=== PATIENT | male | born 1990 | race Two or more races ===

== ENCOUNTER 2020-09-12 16:16 | Outpatient (CLI) | payer OTHER ==
--- NOTE | 2020-09-12 16:48 | XRAY Report ---
PROCEDURE: Cervical Spine 2 View INDICATIONS: STRAIN OF MUSCLE, FACIA, AND TENDON OF NECK TECHNIQUE: 3 view(s) of the cervical spine were acquired. COMPARISON: None. FINDINGS: Bones: No fractures or dislocations to the C7-T1 level. The lateral masses of C1 appear intact on t he odontoid view. No suspicious bony lesions. Soft tissues: No prevertebral soft tissue swelling. IMPRESSION: No visualized acute fracture or dislocation. However, occult injury cannot be excluded. Recommend short interval imaging follow-up in 7-10 days as clinically indicated for additional evalua tion. Reviewed by: Geraldine Aden MD on 09/12/2020 3:46 PM [place] Approved by: Geraldine Aden MD on 09/12/2020 3:46 PM [facility] Station ID: [id number]
--- NOTE | 2020-09-12 19:04 | XRAY Report ---
PROCEDURE: Thoracic Spine 2 View INDICATIONS: STRAIN OF MUSCLE, FACIA, AND TENDON OF NECK TECHNIQUE: 2 views of the thoracic spine were acquired. COMPARISON: None. FINDINGS: Bones: No fractures or dislocations. No suspicious bony lesions. 12 pairs of ribs are noted, and a ppear intact where visualized. Soft tissues: No paravertebral stripe thickening. IMPRESSION: No visualized acute fracture or dislocation. However, occult injury cannot be excluded. Recommend dennise rt interval imaging follow-up in 7-10 days as clinically indicated for additional evaluation. Reviewed by: Geraldine Aden MD on 09/12/2020 6:03 PM [facility] Approved by: Geraldine Aden MD on 09/12/2020 6:03 PM [facility] Station ID: [id number]
== END 2020-09-12 23:59 | disposition home or self-care (01) ==
LOC: DI.N 16:16
PROVIDERS: ATTEND Physician Assistant Medical
DX: S16.1XXA Strain of muscle, fascia and tendon at neck level, initial encounter (principal)

== ENCOUNTER 2020-09-12 18:17 | Emergency (ER) | payer OTHER ==
[2020-09-12] MEDS ORDERED: HYDROmorphone 1 MG/ML CARPUJECT IVP STA (18:58)
--- NOTE | 2020-09-12 19:13 | ED Physician Documentation ---
History of Present Illness - Stated complaint Stated Complaint: NECK INJ - Chief complaint Chief Complaint: General - Additonal information Additional information: 30-year-old male referred to the emergency department for evaluation of the neck trauma. Yesterday afternoon he was working on [employer] when he was attempting to move a chain link fencing. He was in a harness on the outside of the bridge. As he was bending down while standing on a steel cable he cut a clip to the fencing and the cable he was standing on snapped he fell off of it striking his chin and right neck on the cable below it. He subsequently was shields spended upside down in his harness before being retrieved back to the bridge. He does have a large contusion on the right side of his neck and under his jaw. He presented to walk-in clinic today for evaluation of the neck trauma and was found to be generally quite tender in all areas in the neck as well as midline lower cervical. He reportedly had cervical neck and throacic x-rays completed Which did not show any apparent injury but given the mechanism and the significant tenderness in the right anterior and lateral neck he was referred to the ER for further evaluation. This is a work related injury. Seen by a walk-in provider and the initial L&I reports was started. An APF was also started preventing pt from returning to work until f/u 09/16/20 with provider. This is a follow-[id number] Review of Systems Constitutional: reports: Reviewed and negative Eyes: reports: Reviewed and negative Ears: reports: Reviewed and negative Nose: reports: Reviewed and negative Throat: reports: Reviewed and negative Cardiac: reports: Reviewed and negative Respiratory: reports: Reviewed and negative GI: reports: Reviewed and negative Skin: reports: Abrasion (s) Musculoskeletal: reports: Neck pain Neurologic: reports: Reviewed and negative Psychiatric: reports: Reviewed and negative PD PAST MEDICAL HISTORY - Past Medical History Past Medical History: No - Past Surgical History Past Surgical History: No - Allergies Allergies/Adverse Reactions: Allergies Allergy/AdvReac Type Severity Reaction Status Date / Time No Known Drug Allergies Allergy Verified 09/12/20 18:35 - Social History Does the pt smoke?: No Does the pt drink ETOH?: No Does the pt have substance abuse?: No - Immunizations Immunizations are current?: No - POLST Patient has POLST: No PD ED PE EXPANDED - General General: Alert, No acute distress - Neck Neck: Other (Large contusion right side of neck that extends to just under the jaw. 2+ carotid pulse bilaterally without bruit or thrill. Generalized tenderness of the paraspinous and anterior neck muscles. Limited range of motion secondary to pain. Normal phonation. No trismus.) - Cardiac Cardiac: Regular Rate, Regular Rhythm, Radial strong equal, Pedal strong equal, Cap refill < 2 sec - Respiratory Respiratory: Clear to ausultation juan carlos. No: Distress, Labored - Abdomen Abdomen: Normal Bowel sounds. No: Tender to palpation - Derm Derm: Abrasion (s) (3 x 4 cm abrasion right lateral neck that extends to just under the angle of the jaw and mandible.) - Extremities Extremities: Normal, Other (Motor strength 5 of 5 bilateral upper extremities.). No: Deformity, Tenderness - Neuro Neuro: Alert and Oriented X 3, CNII-XII intact, Cerebellar nl, Normal gait, Normal finger nose, Normal speech. No: Nystagmus - GCS Eye Opening: Spontaneous Motor: Obeys Commands Verbal: Oriented Total: 15 Results - Vitals Vitals: Vital Signs - 24 hr 09/12/20 09/12/20 18:30 19:18 Temperature 36.2 C L Heart Rate 70 84 Respiratory 18 18 Rate Blood Pressure 138/74 H 135/92 H O2 Saturation 100 98 Oxygen O2 Source Room air - Labs Labs: Laboratory Tests 09/12/20 09/12/20 19:20 19:20 WBC 5.5 RBC 5.21 Hgb 15.4 Hct 46.4 MCV 89.1 MCH 29.6 MCHC 33.2 RDW 12.6 Plt Count 200 MPV 9.9 Neut # (Auto) 2.8 Lymph # (Auto) 2.2 Woodward # (Auto) 0.4 Eos # (Auto) 0.2 Baso # (Auto) 0.0 Absolute Nucleated RBC 0.00 Nucleated RBC % 0.0 Sodium 141 Potassium 4.1 Chloride 101 Carbon Dioxide 26 Anion Gap 14.0 H BUN 20 Creatinine 0.9 Estimated GFR (MDRD) 100 Glucose 98 Calcium 9.6 Total Bilirubin 1.1 H AST 47 H ALT 107 H Alkaline Phosphatase 61 Total Protein 7.8 Albumin 4.8 Globulin 3.0 Albumin/Globulin Ratio 1.6 Lipase 33 - Rads (name of study) cervical CT Radiology: Prelim report reviewed (no acute findings) thoracic ct Radiology: Prelim report reviewed, Final report received (no acute findings) CT soft tissue neck Radiology: Prelim report reviewed (No posttraumatic changes. No mass or fluid collection identified.) PD MEDICAL DECISION MAKING - ED course Complexity details: reviewed results, re-evaluated patient ED course: 30-year-old male presents the emergency department for evaluation of generalized neck pain as well as a very large contusion to the right lateral neck after workplace injury yesterday in which he was working on [employer] and fell a from a height of about 5 feet striking his neck and jaw on suspension wires. He ended up hanging by his belt upside down before he was retrieved from the bridge. Outside x-ray imaging showed no acute fracture but given the large contusion of the neck and the pain he was advised to come to the ER for further evaluation. CT of the thoracic and cervical vertebrae show no acute fractures. We also proceeded to do a CT soft tissue of the neck looking for contusion and hematoma without any acute findings. The walk-in provider that saw him earlier in the day has a written prescriptions for a muscle relaxer as well as a narcotic agent. An APF was filled out preventing him from returning to work until he is seen in follow-up. This gentleman does have a soft collar in place that I will advise him to continue to wear. Emergent return precautions were discussed. Again this ER visit is related [id number] Departure - Departure Disposition: 01 Home, Self Care Clinical Impression: Neck pain Neck contusion Qualifiers: Encounter type: subsequent encounter Qualified Code(s): S10.93XD - Contusion of unspecified part of neck, subsequent encounter Record reviewed to determine appropriate education?: Yes Instructions: ED Soft Collar, ED Sprain Strain Neck Comments: The CT of your cervical and thoracic spine shows no broken bones. The soft tissue CT of your neck also shows no worrisome findings. You do have a large contusion or bruise of your neck from hitting the wire on the bridge. You also likely have some neck strain and whiplash. You are not cleared to return to any work until you are seen by the walk in provider as already scheduled on 16 September. Please fill the prescription for the medications that were prescribed for you earlier. If at any point you develop arm or leg weakness, feel like you cannot talk or swallow normally these return immediately to the ER for a second look
[2020-09-12 19:34] LABS: BASOPHILS % (AUTO) 0.5 %; EOSINOPHILS # (AUTO) 0.2 10^3/uL (0.0-0.7); EOSINOPHILS % (AUTO) 2.7 %; HGB - HEMOGLOBIN 15.4 g/dL (14.0-18.0); LYMPHOCYTES # (AUTO) 2.2 10^3/uL (1.5-3.5); LYMPHOCYTES % (AUTO) 40.4 %; MEAN CORPUSCULAR HEMOGLOBIN 29.6 pg (27.0-31.0); MEAN CORPUSCULAR HGB CONC 33.2 g/dL (32.0-36.0); MEAN CORPUSCULAR VOLUME 89.1 fL (80.0-94.0); MEAN PLATELET VOLUME 9.9 fL (7.4-11.4); MONOCYTES # (AUTO) 0.4 10^3/uL (0.0-1.0); MONOCYTES % (AUTO) 6.3 %; NEUTROPHILS # (AUTO) 2.8 10^3/uL (1.5-6.6); NEUTROPHILS % (AUTO) 49.9 %; PLT - PLATELET COUNT 200 10^3/uL (130-450); RED BLOOD COUNT 5.21 10^6/uL (4.70-6.10); RED CELL DISTRIBUTION WIDTH 12.6 % (12.0-15.0); WHITE BLOOD COUNT 5.5 x10^3/uL (4.8-10.8)
[2020-09-12 19:49] LABS: ALBUMIN 4.8 g/dL (3.2-5.5); ALBUMIN/GLOBULIN RATIO 1.6 (1.0-2.2); BILIRUBIN,TOTAL 1.1 mg/dL (0.2-1.0); CALCIUM 9.6 mg/dL (8.5-10.3); CREATININE 0.9 mg/dL (0.6-1.2); TOTAL PROTEIN 7.8 g/dL (6.7-8.2)
[2020-09-12] MEDS ORDERED: IOVERSOL 320 100 ML VIAL IVP ONE ×2 (20:09→20:43)
[2020-09-12 21:19] VITALS: BP 130/90
== END 2020-09-12 21:18 | disposition home or self-care (01) ==
LOC: ED 18:17
DX: S10.83XA Contusion of other specified part of neck, initial encounter (principal); S10.81XA Abrasion of other specified part of neck, initial encounter; M54.2 Cervicalgia; W17.89XA Other fall from one level to another, initial encounter; Y93.H3 Activity, building and construction; Y92.89 Other specified places as the place of occurrence of the external cause; Y99.0 Civilian activity done for income or pay
CPT/HCPCS: 70491; 72125; 72128; 80053; 83690; 85025; 96374; 99284; J1170; Q9967